=== PATIENT | female | born 1970 | race Caucasian/White ===

== ENCOUNTER 2016-12-02 09:41 | Emergency (ER) | payer BC ==
[~2016-12-02] VITALS: Ht 157.5 cm; Wt 61.0 kg
[2016-12-02 09:47] VITALS: BP 116/92
[2016-12-02] MEDS ORDERED: VALIUM5 MG PO (10:31)
[2016-12-02] MEDS ORDERED: PERCOCET 5/31 TABLET PO (10:31)
[2016-12-02] MEDS ORDERED: MEDROL DOSEPAK4 MG PO (10:31)
== END 2016-12-02 10:57 | disposition home or self-care (01) ==
LOC: EME 09:41
DX: M54.12 Radiculopathy, cervical region (principal)
CPT/HCPCS: 99281; 99284

== ENCOUNTER → 2017-02-13 | Outpatient (CLI) | payer BC ==
[~2017-02-13] MED LIST: MEDROL DOSEPAK4 MG PO; PERCOCET 5/31 TABLET PO; VALIUM5 MG PO
== END | disposition home or self-care (01) ==
LOC: AMB 12:43
PROC: B01B1ZZ Fluoroscopy of Spinal Cord using Low Osmolar Contrast (ICD-10-PCS; principal; 2017-02-13)
DX: M50.223 Other cervical disc displacement at C6-C7 level (principal); M50.222 Other cervical disc displacement at C5-C6 level; M50.221 Other cervical disc displacement at C4-C5 level; F41.9 Anxiety disorder, unspecified; Z53.29 Procedure and treatment not carried out because of patient's decision for other reasons
CPT/HCPCS: 62302; 72125